=== PATIENT | male | born 1955 | race Caucasian/White ===

== ENCOUNTER → 2018-04-30 | Emergency (ER) | END | disposition home or self-care (01) ==

== ENCOUNTER 2018-05-17 22:51 | Inpatient (IN) | END 2018-05-21 12:15 | disposition home or self-care (01) | DRG 259 ==

== ENCOUNTER 2018-12-30 05:36 | Day surgery (SDC) | payer MEDICARE, OTHER ==
[2018-12-30] VITALS (11 sets, daily range): BP systolic 93–135; BP diastolic 52–72; PULSE 58–67; RESP 13–18; Ht 193 cm; Wt 86.6 kg
[~2018-12-30] VITALS: Ht 193 cm; Wt 86.6 kg
[~2018-12-30 05:36] MED LIST: ASPI-1046 PO; ATOR20TA38 PO; CARV3.12 PO; CYCLOPENTOLATE 2% 2 ML OPH RIGHT EYE SCH; DOCU-144 PO; FE F1TAB7 PO; FER325 PO; FURO40TA4 PO; HYDR-4011 PO; LISI10TA2 PO; LORA0.5T PO; ONDA4TAB14 PO; OXYC-279 PO
[2018-12-30] MEDS ORDERED: MOXIFLOXACIN 0.5% 3 ML OPH RIGHT EYE ONE (06:14)
[2018-12-30] MEDS ORDERED: PHENYLephrine 10% 5 ML OPH RIGHT EYE SCH (06:14)
[2018-12-30] MEDS ORDERED: NEPAFENAC 0.1% 3 ML OPH RIGHT EYE SCH (06:15)
[2018-12-30] MEDS ORDERED: CYCLOPENTOLATE 2% 2 ML OPH RIGHT EYE SCH (06:15)
[2018-12-30] MEDS ORDERED: MOXIFLOXACIN 0.5% 3 ML OPH RIGHT EYE SCH (06:30)
[2018-12-30] MEDS ORDERED: LIDOCAINE 1% (MPF) 10 ML INJ ONE (06:32)
[2018-12-30] MEDS ORDERED: TIMOLOL MALEATE/PF 0.5% OCCUDOSE (0.3 ML) ONE (06:32)
[2018-12-30] MEDS ORDERED: EPINEPHrine 1 MG INJ ONE (06:32)
[2018-12-30] MEDS ORDERED: NA BICARB 50 MEQ/50 ML VIAL ONE (06:33)
[2018-12-30] MEDS ORDERED: LIDOCAINE 2% (SDV) 5 ML INJ ONE ×2 (06:34→07:25)
[2018-12-30] MEDS ORDERED: LISI-313 PO (07:05)
--- NOTE | 2018-12-30 07:08 | PREAC ---
Date/Time of Note Date/Time of Note DATE: 12/30/18 TIME: 07:05 Anesthesia Eval and Record Evaluation Time Pre-Procedure Interview DATE: 12/30/18 TIME: 07:05 Age 63 Sex male NPO: 8 hrs Preoperative diagnosis R eye cataract Planned procedure R eye cataract extraction w/ IOL Past Medical History Past Medical History: Includes (poor vision in both eyes) Cardio: HTN, PA, CAD, PPM/AICD, CHF Endo: Diabetes Neuro: Seizure disorder Psych: Other (Dementia) Surgery & Anesthesia Issues No known issue Meds Anticoagulation: No Beta Natalia within 24 hr: No Reason Beta Natalia not given: Pt. not on B-Natalia Active Scripts Furosemide* (Furosemide*) 40 Mg Tablet, 40 MG PO Q48H, #15 TAB 2 Refills Prov:MADELEINE VICTORP S. 05/21/18 Lisinopril* (Lisinopril*) 10 Mg Tablet, 10 MG PO DAILY, #30 TAB 3 Refills Prov:MADELEINE VICTORP S. 05/21/18 Docusate Sodium* (Colace*) 100 Mg Capsule, 100 MG PO TID, #30 CAP Prov:NICOLETTE MYERS MD 04/30/18 Oxycodone HCl/Acetaminophen (Percocet 5-325 mg Tablet) 1 Each Tablet, 1 EACH PO Q6, #10 TAB Prov:NICOLETTE MYERS MD 04/30/18 Ondansetron (Ondansetron Odt) 4 Mg Tab.rapdis, 4 MG PO Q6H PRN for NAUSEA AND/OR VOMITING, #10 TAB Prov:EMILY MATTHEWS MD 07/23/17 Hydrocodone/Acetaminophen ([place] 5-325 Tablet) 1 Each Tablet, 1 TAB PO Q6H PRN for PAIN, #12 TAB Prov:EMILY MATTHEWS MD 07/23/17 Reported Medications Ferrous Sulfate* (Ferrous Sulfate*) 325 Mg Tabec, 325 MG PO DAILY, TAB 07/23/17 Atorvastatin Calcium* (Atorvastatin Calcium*) 20 Mg Tablet, 20 MG PO QHS, #30 TAB 07/23/17 Lorazepam* (Lorazepam*) 0.5 Mg Tablet, 0.5 MG PO HS PRN for ANXIETY, TAB 07/23/17 Carvedilol* (Coreg*) 3.125 Mg Tablet, 3.125 MG PO BID, #60 TAB 07/23/17 Fe Fumarate/[place]/FA/Bcomp,C (Nephron FA Tablet) 1 Each Tablet, 1 EACH PO DAILY, TAB 07/23/17 Aspirin* (Aspirin* (EC)) 81 Mg Tablet.dr, 81 MG PO DAILY, TAB 08/12/15 Current Medications Phenylephrine HCl (Ak-Dilate 10%) 1 drop Q5 MIN X3 RIGHT EYE Last administered on 12/30/18at 06:27; Admin Dose 1 DROP; Start 12/30/18 at 06:14 Nepafenac ([place] Oph) 1 drop Q5 MIN X3 RIGHT EYE Last administered on 12/30/18at 06:28; Admin Dose 1 DROP; Start 12/30/18 at 06:15 Cyclopentolate HCl (Cyclogyl 2% Oph) 1 drop Q5MIN X3 RIGHT EYE Last admin istered on 12/30/18at 06:27; Admin Dose 1 DROP; Start 12/30/18 at 06:15 Meds reviewed: Yes Allergies Coded Allergies: No Known Allergy (Unverified , 12/30/18) Allergies Reviewed: Yes Labs/Studies Labs Reviewed: Reviewed by anesthesiologist Result Diagram: 12/30/1860512/30/18605 Laboratory Tests 12/30/18 06:06 test: Negative Studies: ECG (abnormal ecg, R superior axis deviation, nonspecific intraventricular block) Pre-procedure Exam Airway: Adequate mouth opening, Adequate thyromental dist Mallampati: Mallampati II Teeth: Abnormal (teeth in poor condiiton) Lung: Normal Heart: Normal ASA Physical Status ASA physical status: 3 Emergency: None Planned Anesthetic General/MAC: MAC Pre-operative Attestations Prior to commencing anesthesia and surgery, the patient was re-evaluated, there was verification of: *The patient's identity *The results of appropriate recent lab work and preoperative vital signs *The above evaluation not changing prior to induction *Anesthetic plan, risk benefits, alternative and complications discussed with patient/family; questions answered; patient/family understands, accepts and wishes to proceed. IDGNA KEYES Dec 30, 2018 07:08
[2018-12-30] MEDS ORDERED: PROPOFOL 20 ML ONE (07:25)
--- NOTE | 2018-12-30 07:26 | HPN ---
Date/Time of Note Date/Time of Note DATE: 12/30/18 TIME: 07:25 Interval H&P Admission Note Pt. seen H&P reviewed: No system changes VINAY KEENE MD Dec 30, 2018 07:26
[2018-12-30] MEDS ORDERED: OXYCODONE/ACETAMINOPHEN (5/325) TAB PO PRN (07:30)
[2018-12-30] MEDS ORDERED: ALBUTEROL 0.083% (NEB) 2.5 MG/3 ML AMP HHN PRN (07:30)
[2018-12-30] MEDS ORDERED: ONDANSETRON 4 MG INJ IV PRN (07:30)
[2018-12-30] MEDS ORDERED: ACETAMINOPHEN 325 MG TAB PO PRN (07:30)
[2018-12-30] MEDS ORDERED: LABETALOL HCL 20MG INJ IV PRN (07:30)
[2018-12-30] MEDS ORDERED: DIPHENHYDRAMINE 50 MG INJ IV PRN (07:30)
[2018-12-30] MEDS ORDERED: ACETAMINOPHEN 500 MG TAB PO PRN (07:30)
[2018-12-30] MEDS ORDERED: hydrALAzine 20 MG INJ IV PRN (07:30)
[2018-12-30] MEDS ORDERED: FENTAnyl 50 MCG/ML VIAL IV PRN (07:30)
[2018-12-30] MEDS ORDERED: TIMOLOL 0.5% 5 ML OPH RIGHT EYE ONE (07:51)
[2018-12-30] MEDS ORDERED: LIDOCAINE 1% (MPF) 10 ML INJ INJ ONE (07:51)
[2018-12-30] MEDS ORDERED: PHENYLephrine 10% 5 ML OPH RIGHT EYE ONE (07:51)
--- NOTE | 2018-12-30 08:17 | SIPON ---
Date/Time of Note Date/Time of Note DATE: 12/30/18 TIME: 08:11 Operative Report Preoperative Diagnosis nuclear sclerotic cataract right eye Postoperative Diagnosis same Operation/Procedure Performed cataract extraction Surgeon see signature line sales service assistant none Anesthesia: MAC Estimated blood loss: none (none) Transfusion Required none Specimen none Grafts/Implants none Complications posterior capsular rupture VINAY KEENE MD Dec 30, 2018 08:17
--- NOTE | 2018-12-30 08:17 | PAC ---
Date/Time of Note Date/Time of Note DATE: 12/30/18 TIME: 08:16 Post-Anesthesia Notes Post-Anesthesia Note Last documented vital signs Vital Signs Date Temp Pulse Resp B/P Pulse Ox O2 O2 Flow FiO2 Time (MAP) Delivery Rate 12/30/18 97.6 98 67 58 18 18 135/72 98 99 2LNC 06:00 08 paced (93) 96/ 11 55 Activity: WNL Respiratory function: WNL Cardiovascular function: WNL Mental status: Baseline Pain reasonably controlled: Yes Hydration appropriate: Yes Nausea/Vomiting absent: Yes DIGNA KEYES Dec 30, 2018 08:17
--- NOTE | 2018-12-30 09:12 | OPR ---
DATE OF OPERATION: 12/30/2018 PREOPERATIVE DIAGNOSIS: Senile nuclear sclerotic cataract, right eye. POSTOPERATIVE DIAGNOSIS: Senile nuclear sclerotic cataract, right eye. OPERATION PERFORMED: Phacoemulsification of cataract with implantation of posterior chamber lens. DESCRIPTION OF PROCEDURE: Following standard preparation and draping of the patient, a speculum was placed for immobilization of the lids. A 2 mm access port was made at the 10:30 o'clock posterior li mbal condition following which a small amount of anesthetic followed by Viscoat was placed in the eye . A 3 mm anterior limbal incision was now made through the cornea into the anterior capsule. A caps ulorrhexis was now performed following which the anterior capsule was removed from the eye. Gentle h ydrodissection the major portion of the lens from the posterior capsule. The phacoemulsifi er tip was introduced into the eye and the rock hard lens was now slowly broken up using a 2-handed t echnique to keep the lens within the plane of the iris. The lens was approximately 60% to 70% remove d and the lens suddenly tumbled over at which time the lens itself appeared to break the posterior ca psule. Before anything can be done, the remaining lens drifted into the vitreous cavity. At this po int, everything appeared to be a perfectly clear and to make it easier for the retinal surgeon to rem ove this lens material, the procedure was terminated at this point. The eye was simply closed with 1 interrupted 10-0 Vicryl suture. One drop of timolol was placed in the eye along with 1 drop of Viga mox. A light pressure dressing was placed and the patient returned to the recovery room in satisfact ory condition. Dictated By: VINAY REAL/ABA Conf#: [id number] DID#: [id number] CC: VINAY KEENE MD;*EndCC*
== END 2018-12-30 09:30 | disposition home or self-care (01) ==
LOC: SDS 05:36
PROVIDERS: ATTEND Ophthalmology
DX: H25.11 Age-related nuclear cataract, right eye (principal); I25.10 Atherosclerotic heart disease of native coronary artery without angina pectoris; I11.0 Hypertensive heart disease with heart failure; I50.9 Heart failure, unspecified; E11.9 Type 2 diabetes mellitus without complications
CPT/HCPCS: 66984; 71045; 80053; 80061; 82962; 85025; 85610; 85730; J0171